=== PATIENT | female | born 1970 | race Caucasian/White ===

== ENCOUNTER 2024-01-15 12:11 | Emergency (ER) | payer OTHER, SELFPAY ==
[2024-01-15 12:13] VITALS: BP 141/84; BMI 37.6
[2024-01-15 12:31] LABS: % Basophils 0.8 % (0-2); % Eosinophils 3.1 % (0-6); % Immature Granulocytes 0.3 % (0-0.5); % Monocytes 9.2 % (1.7-9.3); % Neutrophils 56.6 % (42.2-75.2); Absolute Eosinophils 0.1 10^3/uL (0-0.7); Absolute Lymphocytes 1.1 10^3/uL (1.2-3.4); Absolute Monocytes 0.3 10^3/uL (0.1-0.6); Hematocrit 37.7 % (37.0-47.0); Hemoglobin 13.5 g/dL (12.0-16.0); Mean Corp Hgb Conc. 35.8 g/dL (33.0-37.0); Mean Corpuscular Hgb 30.8 pg (27.0-31.0); Mean Corpuscular Volume 86.1 fL (81.0-99.0); Nucleated Red Blood Cells % 0 %; Platelet Count 270 10^3/uL (130-400); Red Blood Cell Count 4.38 10^6/uL (4.20-5.40); White Blood Cell Count 3.6 10^3/uL (4.8-10.8)
[2024-01-15 12:43] LABS: ALT (SGPT) 28 U/L (0-35); AST (SGOT) 27 U/L (14-36); Alkaline Phosphatase 71 U/L (38-126); Blood Urea Nitrogen 15 mg/dl (7-17); Calcium 9.7 mg/dl (8.4-10.2); Carbon Dioxide 24 mmol/L (22-30); Chloride 102 mmol/L (98-107); Estimated Creatinine Clearance > 125 ml/min; Glucose 106 mg/dl (70-99); Sodium 134 mmol/L (135-145); Total Bilirubin 0.6 mg/dl (0.2-1.3); Total Protein 7.3 g/dl (6.3-8.2); eGFR > 60.00
[2024-01-15 12:54] LABS: Troponin I < 0.012 ng/ml
[2024-01-15 13:20] LABS: D-Dimer < 0.27 ug/mlFEU (0.00-0.50)
--- NOTE | 2024-01-15 13:59 | ED.GENMED ---
History of Present Illness
General
Chief Complaint: Chest Pain
Source: patient and spouse
Exam Limitations: none
Time Seen by Provider: 01/15/24 12:42
Nursing documentation reviewed up to this point in time: agreed with
Travel History
Have you had any contact with someone who has COVID-19?: No
Do you have any symptoms of coronavirus? Fever > 100 degrees, chills, cough, shortness of breath, sore throat, loss of taste or smell, muscle aches, or headache?: No
History of Present Illness
History of Present Illness:
53-year-old female with a past medical history of hypertension, diabetes, GERD who presents to the emergency room for evaluation of dizziness and chest discomfort. 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
had onset of dizziness that she describes room spinning sensation and feeling faint as if she might pass out. She says that she noticed she was having some tingling in her arms and she had a warm feeling throughout her entire body. She says that
she felt sensation like she might urinate herself. She says she started to develop some heaviness in her chest. She said she felt short of breath. She says that she went to the school nurse and they put her legs up and checked her blood pressure
and blood pressure was slightly elevated. She came to the emergency room to be assessed. She says that her symptoms have resolved on arrival in the emergency room here. She says total duration of symptoms was approximately 20 minutes. Denies any
headache. Denies any neck pain. Denies any abdominal or flank pain. Her only other complaint on review of systems that she has noticed some slight dysuria recently and is requesting to be checked for UTI. She says she had a similar episode in
June and was seen at [facility] in the emergency room and apparently had a reassuring workup. She denies any known cardiac history. She does have a family history of CAD in her mother. She denies smoking, alcohol, drug use. She does
note that she was recently diagnosed with insulin resistance and was started on metformin 3 weeks ago; she has made adjustment to a low-carb diet recently and she notes that she was very busy today and did not drink as much water as she usually does.
Review of Systems
Review of Systems
All Other Systems: ROS reviewed and negative except as documented in HPI and ROS
Constitutional: Denies fever or chills
EENT: Denies sore throat or runny nose
Respiratory: Reports trouble breathing; Denies cough
Cardiac: Reports chest pain; Denies diaphoresis, palpitations or syncope
ABD/GI: Denies abdominal pain, nausea, vomiting or diarrhea
: Reports dysuria; Denies frequency or flank pain
Musculoskeletal: Denies neck pain or back pain
Neurological: Reports dizzy and other (Paresthesias); Denies headache, weakness or numbness
Phy Exam
Physical Exam
Physical Exam:
General: Awake, alert, oriented x3; somewhat anxious but no acute distress
Head: Normocephalic, atraumatic
Eyes: Conjunctiva normal, EOMI, pupils equal round and reactive to light bilaterally
Throat: Airway intact, handling secretions
Neck: Trachea midline, supple without meningismus
Lungs: Clear to auscultation bilaterally, no wheezing, rales, rhonchi
Heart: Regular rate and rhythm, no murmurs, gallops, or rubs
Abd: Soft, non distended, nontender with no palpable masses
Neuro: Cranial nerves grossly intact, speech fluid
Skin: no rash
Extremities: No edema in extremities, equal pulses in all extremities
Scores
Heart Failure Risk
Heart Failure Risk Score: Not Applicable
Heart Score for Chest Pain Patients
STEMI patient?: Not applicable
Withdrawal Assessment of Alcohol
Withdrawal Assessment Completed?: Not applicable
Course
Orders/Labs/Results
Orders:
Orders
01/15/24 12:12
Electrocardiogram (*1) Urgent
Reason for Study: Chest Pain
Cardiac Monitoring- Treatment ONCE
EKG- Treatment ONCE
IV Insert/Care/Rem.- Treatment PRN
O2 Therapy [RESP] Urgent
Titrate/Wean O2 to maintain O2 sat greater than (%): 90
Special Instructions: Maintain sats >/=90%
Pulse Ox/spot Check [RESP] Urgent
Quantity: 1
Special Instructions: ON ROOM AIR
01/15/24 12:17
Complete Blood Count/With Diff Urgent
Comprehensive Metabolic Panel Urgent
Troponin I Urgent
01/15/24 12:49
CR Chest - 2 Views Urgent
Comment:
Reason For Exam: cp
01/15/24 12:57
D-Dimer Urgent
01/15/24 15:30
Urinalysis Reflex To Culture Urgent
Date Specimen was Collected: 01/15/24
Time Specimen was Collected: 14:04
01/15/24 16:43
Troponin I Urgent
Abnormal Lab Results
01/15/24 01/15/24
12:17 15:30
WBC 3.6 L 10^3/uL
(4.8-10.8)
Absolute Lymphs (auto) 1.1 L 10^3/uL
(1.2-3.4)
Sodium 134 L mmol/L
(135-145)
Glucose 106 H mg/dl
(70-99)
Urine Ketones 1+ A
(Negative)
01/15/24 12:17
01/15/24 12:17
Vital Signs
Initial and Last Documented VS:
Initial Vital Signs
Temp Pulse Resp BP Pulse Ox
36.7 C 92 17 141/84 99
01/15/24 12:13 01/15/24 12:13 01/15/24 12:13 01/15/24 12:13 01/15/24 12:13
Last Documented Vital Signs
Temp Pulse Resp BP Pulse Ox
36.7 C 90 15 140/80 99
01/15/24 12:13 01/15/24 17:31 01/15/24 17:31 01/15/24 17:31 01/15/24 12:13
MDM/Problems Addressed
Differential Diagnosis Includes:
Differential diagnosis is wide and includes but is not limited to: Dehydration, hypoglycemia, electrolyte derangement, postural symptoms/orthostatic hypotension, vasovagal episode, panic attack, cardiac dysrhythmia, symptomatic anemia, PE somewhat
less likely, very low suspicion for acute coronary syndrome based on full clinical history
MDM/Problems Addressed:
53-year-old female presents after episode of dizziness associated with paresthesias, chest discomfort and shortness of breath. Lasted for about 20 minutes. Had a similar episode in June and had reassuring workup at that time. Her vital signs
here are significant for marginal hypertension otherwise normal. Physical exam as above. EKG shows a sinus rhythm with no ischemia, no delta wave, no Brug[place], normal QTc, no signs of LVH. Plan to place an IV check labs including a CBC and a CMP.
Will check a D-dimer. Check serial troponins. Check a chest x-ray. Will monitor on telemetry. Reassess after the above.
Labs reviewed: CBC unremarkable, CMP shows no clinically significant abnormalities. Troponin undetectable x 2. D-dimer negative. Urinalysis negative for infection. Chest x-ray shows no acute disease. Patient has remained awake and alert with
reassuring vitals throughout the duration of her 6-hour ED observation. Stable for discharge at this point. Will have her follow-up with cardiology as an outpatient. She feels comfortable with this plan. Spoke about return precautions and all
questions answered.
Chronic conditions affecting care:
Diabetes
*Radiology
Radiology exam reviewed: preliminary read by ED provider (No acute disease on chest x-ray) and radiology read reviewed
*Pulse Oximetry
Patient hypoxic: no
*EKG
Interpreted by ED Provider?: Yes
Heart Rate: 92
Rate: normal
Rhythm: sinus
[place]: normal axis
Interval: normal interval
QRS Pattern: normal QRS
Ischemia: no ischemia
*Critical Care Note
Total Time (30-74mins, 75-104mins- exclusive of procedures): Not Applicable
Data Reviewed
Source: patient and spouse
ED Attending Note
-
Portions of this chart may have been created with voice recognition software.� Occasional wrong word or��sound alike� substitutions may have occurred due to the inherent limitations of voice recognition software.
Discharge Plan
Departure
Patient Disposition: Home (Routine Discharge)
Date of Disposition: 01/15/24
Time of Disposition: 18:00
Patient with high blood pressure during this ER visit?: No
Discharge Problem:
Dizziness, Chest heaviness, Pre-syncope
Instructions: Near Fainting (DC), Chest Pain DCA Follow Up
Referrals:
Ayah Chance DO [Family Provider] -
Gustavo Mtz MD [Active] - Call in 1-3 days for appt (Cardiology)
Activity Restrictions/Additional Instructions:
Thank you for visiting the Emergency Department at [facility].
1. Please schedule a follow up appointment as directed. Call first thing tomorrow morning to make an appointment.
2. If indicated, please take your medications as instructed and indicated on discharge paperwork.
3. If any of your symptoms do not improve, or persist, or become more severe within 6-12 hours, please return to the emergency department for further care.
4. Please return to the emergency department if you develop a headache, neck pain/stiffness, fever greater than 100.4F, chest pain, shortness of breath, persistent nausea, vomiting, slurred speech, difficulty walking, numbness/tingling, weakness,
signs of infection or any other symptoms that are worrisome to you.
Please call [phone] if you have any questions.
Interventions
Interventions:
*Risk Screen - Suicide Last Done: 01/15/24 12:13
*General Assessment Last Done: 01/15/24 12:13
*Neglect/Abuse Screening Last Done: 01/15/24 12:13
ED- Fall Risk Assessment Last Done: 01/15/24 12:43
ED- Cardiac Assessment Last Done: 01/15/24 12:43
Discharge Date and Time
Print Language: CHINESE
[2024-01-15 15:58] LABS: Urine Albumin Negative (Neg - Trace); Urine Bilirubin Negative (Negative); Urine Character Clear (Clear); Urine Color Straw; Urine Glucose Negative (Negative); Urine Ketone 1+ (Negative); Urine Leukocyte Negative (Negative); Urine Nitrite Negative (Negative); Urine Occult Blood Negative (Negative); Urine Urobilinogen Negative (Neg - 1+)
[2024-01-15 17:13] LABS: Troponin I < 0.012 ng/ml
[2024-01-15 17:31] VITALS: BP 140/80
== END 2024-01-15 18:52 | disposition home or self-care (01) ==
LOC: EMR 12:11
PROVIDERS: Student in an Organized Health Care Education/Training Program; EMERGENCY PHYSICIAN Emergency Medicine; FAMILY PHYSICIAN Internal Medicine
DX: R42 Dizziness and giddiness (principal); R07.89 Other chest pain; R55 Syncope and collapse; I10 Essential (primary) hypertension; E11.9 Type 2 diabetes mellitus without complications; K21.9 Gastro-esophageal reflux disease without esophagitis
CPT/HCPCS: 99285; 71046; 80053; 81003; 84484; 85025; 85379; 93005